=== PATIENT | male | born 1970 | race Caucasian/White ===

== ENCOUNTER 2020-11-29 16:09 | Inpatient (IN) ==
[2020-11-29] MEDS ORDERED: AMIODARONE 450 MG/9 ML VIAL IV ONE (19:17)
[2020-11-29] MEDS ORDERED: EPINEPHrine 1 MG/10 ML SYRINGE ONE (19:20)
[2020-11-29] MEDS ORDERED: PHENYLEPHRINE DRIP 40 MG/250 ML PREMIX IV ONE ×2 (19:28→21:02)
[2020-11-29] MEDS ORDERED: DEXTROSE 50% 25 GM/50 ML VIAL IV ONE (19:29)
[2020-11-29] MEDS ORDERED: NOREPINEPHRINE 4 MG/4 ML VIAL IV ONE (19:40)
[2020-11-29] MEDS: NOREPINEPHRINE 8 MG in SODIUM CHLORIDE 0.9% 242 ML IV PRN ×3 (19:45→22:30)
[2020-11-29] MEDS: PHENYLEPHRINE DRIP 40 MG/250 ML PREMIX IV PRN ×3 (19:45→22:30)
[2020-11-29] MEDS ORDERED: SODIUM CHLORIDE 0.9% 1,000 ML IV ONE (19:46)
[2020-11-29] MEDS: DEXTROSE 50% 25 GM/50 ML VIAL IV PRN (19:50)
[2020-11-29 19:57] LABS: Basophils # 0.1 10*3/uL (0.0-0.2); Basophils % 0.4 % (0.0-0.8); Eosinophils % 0.1 % (0.00-10.9); Hematocrit 31.1 VOL% (42.0-52.0); Hemoglobin 10.6 GM/DL (14.0-18.0); Immature Granulocytes % 4.7 %; Lymphocytes % 4.5 % (21.2-54.2); Mean Corpuscular HGB Conc 34.1 GM/DL (32-36); Mean Corpuscular Volume 103.3 FL (87-102); Mean Platelet Volume 10.6 FL (9.6-12.0); Monocytes % 4.3 % (1.7-12.7); NRBC # 0.09 10*3/uL; Platelet Count 292 T/CUMM (130-400); Red Blood Count 3.01 MC/CUMM (3.8-5.5); Red Cell Distribution Width 15.8 % (9.3-17.3); White Blood Count 21.3 T/CUMM (4-12)
[2020-11-29] MEDS ORDERED: AMIODARONE INJ 450 MG in DEXTROSE 5% 241 ML IV SCH (20:00)
[2020-11-29 20:08] LABS: INR 1.2; PT Patient Result 12.9 SECS (10.5-12.0); Partial Thromboplastin Time 37.3 SECS (23.9-33.8)
[2020-11-29 20:18] LABS: Band Neutrophils 10 % (0-10); Lymphocytes 5 % (20-55); Segmented Neutrophils 82 % (50-85); Total Cells Counted 100
[2020-11-29 20:19] LABS: Basophilic Stippling 1+; Hypochromasia 1+; Platelet Estimate Adequate; Polychromasia Few; Target Cells Few
[2020-11-29 20:21] LABS: Anisocytosis Slight
[2020-11-29 20:22] LABS: Bilirubin,Urine Moderate mg/dL (Negative); Blood, Urine Moderate mg/dL (Negative); Glucose,Urine (UA) Negative (Negative); Hyaline Casts,Urine 45 /LPF (0-3); Ketones,Urine Negative (Negative); Mucus,Urine Occasional /LPF (Occasional); Nitrite,Urine Negative (Negative); Protein,Urine 30 MG/DL; RBC,Urine 24 /HPF (0-4); Squamous Epithelial Cell,Urine Occasional /HPF (0-10); Urine Appearance CLOUDY (Clear); Urine Color Amber (Yellow); Urine Specific Gravity 1.014 (1.001-1.035)
[2020-11-29 20:27] LABS: Alanine Aminotransferase 85 U/L (16-61); Albumin 1.5 G/DL (3.4-5.0); Alkaline Phosphatase 527 U/L (45-117); Aspartate Amino Transferase 354 U/L (0-37); Blood Urea Nitrogen 32 MG/DL (7-18); CKMB % 4.6 %; Calcium 8.8 MG/DL (8.5-10.1); Carbon Dioxide 20 MMOL/L (21-32); Estimated Glom Filtration Rate 36 ML/MIN; Glucose 56 MG/DL (74-106); Osmolality,Calculated 242.5 MOS/KG (273-304); Potassium 5.1 MMOL/L (3.5-5.1)
[2020-11-29 20:31] LABS: ABG Oxygen Saturation 99.5 % (95-100); ABG PCO2 53.5 MM HG (35-48); ABG TCO2 14.8 MMOL/L (23-27)
[2020-11-29 20:33] LABS: Sodium 118 MMOL/L (136-145)
[2020-11-29 20:35] LABS: ABG PH 7.066 (7.35-7.45)
[2020-11-29] MEDS ORDERED: ALBUTEROL/IPRATROPIUM 3 ML NEB RESP TX PRN (20:59)
[2020-11-29] MEDS ORDERED: ALBUTEROL 2.5 MG/3 ML NEB RESP TX PRN (20:59)
[2020-11-29] MEDS ORDERED: ONDANSETRON 4 MG/2 ML VIAL IV PRN (20:59)
[2020-11-29] MEDS ORDERED: SODIUM CHLORIDE 0.9% 1,000 ML IV SCH (21:00)
[2020-11-29] MEDS ORDERED: SODIUM BICARB INJ 150 MEQ in DEXTROSE 5% 850 ML IV SCH (21:30)
[2020-11-29] MEDS ORDERED: MINERAL OIL/PETROLATUM OPH OINT 3.5 GM TUBE BOTH EYES PRN (21:54)
[2020-11-29] MEDS: fentaNYL INJ 1,250 MCG in SODIUM CHLORIDE 0.9% 225 ML IV PRN (22:04)
[2020-11-29] MEDS ORDERED: SODIUM CHLORIDE 0.9% 100 ML IV ONE ×2 (22:59→23:00)
[2020-11-29] MEDS: PANTOPRAZOLE 40 MG VIAL IV SCH (23:01)
[2020-11-29] MEDS: ALBUMIN 5% 25 GM/500 ML VIAL IV SCH (23:01)
[2020-11-29] MEDS: PIPERACILLIN/TAZOBACTAM 3,375 MG in SODIUM CHLORIDE 0.9% 100 ML IV SCH (23:01)
[2020-11-30] MEDS: NOREPINEPHRINE 16 MG in SODIUM CHLORIDE 0.9% 234 ML IV PRN ×7 (00:05→23:50)
[2020-11-30] MEDS: PHENYLEPHRINE INJ 160 MG in SODIUM CHLORIDE 0.9% 234 ML IV PRN ×4 (00:05→18:20)
[2020-11-30 00:24] LABS: ABG Base Excess -15.5 MMOL/L (-2.5-2.5); ABG HCO3 13.2 MMOL/L (20-26); ABG Oxygen Saturation 99.3 % (95-100); ABG PCO2 42.4 MM HG (35-48); ABG PO2 304.5 MM HG (80-95); ABG TCO2 14.5 MMOL/L (23-27)
[2020-11-30 00:27] LABS: ABG PH 7.111 (7.35-7.45)
[2020-11-30] MEDS: HYDROCORTISONE 100 MG VIAL IV SCH ×4 (00:38→23:15)
[2020-11-30] MEDS: DEXTROSE 50% 25 GM/50 ML VIAL IV PRN ×4 (02:30→17:41)
[2020-11-30 02:58] LABS: Basophils % 0.2 % (0.0-0.8); Eosinophils % 0.1 % (0.00-10.9); Hematocrit 27.4 VOL% (42.0-52.0); Immature Granulocytes % 1.6 %; Immature Granulocytes Absolute 0.31 #; Lymphocytes # 0.7 10*3/uL (1.4-4.0); Lymphocytes % 3.6 % (21.2-54.2); Mean Corpuscular HGB Conc 32.8 GM/DL (32-36); Mean Corpuscular Volume 108.3 FL (87-102); Mean Platelet Volume 10.7 FL (9.6-12.0); Monocytes % 2.8 % (1.7-12.7); NRBC # 0.09 10*3/uL; Neutrophils % 91.7 % (38.7-73.9); Platelet Count 218 T/CUMM (130-400); Red Blood Count 2.53 MC/CUMM (3.8-5.5); Red Cell Distribution Width 15.6 % (9.3-17.3)
[2020-11-30 03:15] LABS: INR 1.6; PT Patient Result 17.1 SECS (10.5-12.0); Partial Thromboplastin Time 56.6 SECS (23.9-33.8)
[2020-11-30 03:28] LABS: Blood Urea Nitrogen 32 MG/DL (7-18); Calcium 6.8 MG/DL (8.5-10.1); Carbon Dioxide 12 MMOL/L (21-32); Estimated Glom Filtration Rate 32 ML/MIN; Glucose 164 MG/DL (74-106); Potassium 4.7 MMOL/L (3.5-5.1)
[2020-11-30 03:31] LABS: Albumin 1.5 G/DL (3.4-5.0); Bilirubin,Total 8.2 MG/DL (0.20-1.00); Calcium 6.7 MG/DL (8.5-10.1); Osmolality,Calculated 247.5 MOS/KG (273-304); Potassium 4.6 MMOL/L (3.5-5.1)
[2020-11-30 03:34] LABS: CKMB % 2.2 %
[2020-11-30 03:43] LABS: Osmolality,Calculated 248.5 MOS/KG (273-304); Sodium 118 MMOL/L (136-145)
[2020-11-30 03:55] LABS: ABG Base Excess -17.6 MMOL/L (-2.5-2.5); ABG HCO3 11.2 MMOL/L (20-26); ABG PCO2 41.5 MM HG (35-48); ABG TCO2 11.6 MMOL/L (23-27)
[2020-11-30 03:58] LABS: ABG PH 7.068 (7.35-7.45)
[2020-11-30 04:00] LABS: Band Neutrophils 9 % (0-10); Lymphocytes 5 % (20-55); Nucleated Red Blood Cells 2 (0-5); Segmented Neutrophils 86 % (50-85); Total Cells Counted 100
[2020-11-30 04:01] LABS: Hypochromasia 1+; Microcytosis Slight; Platelet Estimate Adequate
[2020-11-30] MEDS ORDERED: SODIUM BICARBONATE 50 MEQ/50 ML VIAL IV ONE ×2 (04:04→06:20)
[2020-11-30] MEDS: ALBUMIN 5% 25 GM/500 ML VIAL IV SCH ×3 (04:45→21:10)
[2020-11-30] MEDS: PIPERACILLIN/TAZOBACTAM 3,375 MG in SODIUM CHLORIDE 0.9% 100 ML IV SCH ×3 (04:55→21:50)
[2020-11-30] MEDS ORDERED: SODIUM BICARB INJ 150 MEQ in DEXTROSE 5% 850 ML IV SCH (06:35)
[2020-11-30 07:50] LABS: Basophils # 0.1 10*3/uL (0.0-0.2); Basophils % 0.2 % (0.0-0.8); Hematocrit 28.5 VOL% (42.0-52.0); Immature Granulocytes % 1.8 %; Immature Granulocytes Absolute 0.42 #; Lymphocytes # 0.8 10*3/uL (1.4-4.0); Lymphocytes % 3.6 % (21.2-54.2); Mean Corpuscular HGB Conc 31.6 GM/DL (32-36); Mean Platelet Volume 10.8 FL (9.6-12.0); Monocytes % 2.9 % (1.7-12.7); NRBC # 0.13 10*3/uL; Neutrophils % 91.5 % (38.7-73.9); Platelet Count 194 T/CUMM (130-400); Red Blood Count 2.59 MC/CUMM (3.8-5.5); Red Cell Distribution Width 15.6 % (9.3-17.3)
[2020-11-30 08:02] LABS: INR 1.8
[2020-11-30 08:03] LABS: Partial Thromboplastin Time 50.7 SECS (23.9-33.8)
[2020-11-30 08:10] LABS: Band Neutrophils 14 % (0-10); Hypochromasia 1+; Lymphocytes 3 % (20-55); Microcytosis 1+; Platelet Estimate Adequate; Segmented Neutrophils 78 % (50-85); Total Cells Counted 100
[2020-11-30 08:23] LABS: CKMB % 1.8 %; Calcium 6.7 MG/DL (8.5-10.1); Osmolality,Calculated 255.5 MOS/KG (273-304); Potassium 4.3 MMOL/L (3.5-5.1)
[2020-11-30 08:26] LABS: High Sensitive Troponin I* 469.1 ng/L (0-78)
[2020-11-30] MEDS: SODIUM BICARB INJ 150 MEQ in DEXTROSE 5% 1,000 ML IV SCH ×3 (08:29→16:41)
[2020-11-30] MEDS: PANTOPRAZOLE 40 MG VIAL IV SCH ×2 (08:54→21:30)
[2020-11-30] MEDS ORDERED: POLYETHYLENE GLYCOL POWDER 255 GM BOTTLE PO ONE (09:38)
[2020-11-30] MEDS: RIFAXIMIN 550 MG TABLET PO SCH ×2 (10:22→21:10)
[2020-11-30] MEDS: POLYETHYLENE GLYCOL POWDER 17 GM PACK PER TUBE SCH (10:29)
[2020-11-30] MEDS ORDERED: THIAMINE 200 MG/2 ML VIAL IV ONE (10:34)
[2020-11-30] MEDS ORDERED: VANCOMYCIN INJ 1,500 MG in SODIUM CHLORIDE 0.9% 500 ML IV ONE (11:00)
[2020-11-30] MEDS: FOLIC ACID INJ 1 MG in SYRINGE 1 EACH IV SCH (12:15)
[2020-11-30 14:32] LABS: Basophils # 0.1 10*3/uL (0.0-0.2); Basophils % 0.2 % (0.0-0.8); Hematocrit 27.4 VOL% (42.0-52.0); Hemoglobin 8.8 GM/DL (14.0-18.0); Immature Granulocytes Absolute 0.52 #; Lymphocytes # 0.8 10*3/uL (1.4-4.0); Mean Corpuscular HGB Conc 32.1 GM/DL (32-36); Mean Corpuscular Volume 108.7 FL (87-102); Mean Platelet Volume 11.1 FL (9.6-12.0); Neutrophils % 91.8 % (38.7-73.9); Platelet Count 141 T/CUMM (130-400); Red Blood Count 2.52 MC/CUMM (3.8-5.5); Red Cell Distribution Width 15.7 % (9.3-17.3); White Blood Count 26.3 T/CUMM (4-12)
[2020-11-30 14:45] LABS: INR 2.1
[2020-11-30 14:46] LABS: PT Patient Result 22.3 SECS (10.5-12.0); Partial Thromboplastin Time 53.8 SECS (23.9-33.8)
[2020-11-30 15:02] LABS: Band Neutrophils 40 % (0-10); Lymphocytes 3 % (20-55); Metamyelocytes 7 %; Myelocytes 2 %; Segmented Neutrophils 46 % (50-85); Total Cells Counted 100
[2020-11-30 15:04] LABS: CKMB % 1.5 %; Calcium 6.3 MG/DL (8.5-10.1); High Sensitive Troponin I* 417.8 ng/L (0-78); Osmolality,Calculated 258.4 MOS/KG (273-304); Potassium 3.8 MMOL/L (3.5-5.1)
[2020-11-30 15:06] LABS: Anisocytosis 1+; Atypical Lymphocytes Few; Macrocytosis 1+; Platelet Estimate Adequate; Polychromasia 2+
[2020-11-30] MEDS: fentaNYL INJ 1,250 MCG in SODIUM CHLORIDE 0.9% 225 ML IV PRN (15:46)
[2020-11-30] MEDS: DEXTROSE 10% 1,000 ML IV SCH (18:19)
[2020-11-30 20:12] LABS: Basophils # 0.1 10*3/uL (0.0-0.2); Basophils % 0.3 % (0.0-0.8); Hematocrit 27.5 VOL% (42.0-52.0); Hemoglobin 8.8 GM/DL (14.0-18.0); Immature Granulocytes % 2.1 %; Immature Granulocytes Absolute 0.51 #; Lymphocytes # 0.4 10*3/uL (1.4-4.0); Lymphocytes % 1.8 % (21.2-54.2); Mean Corpuscular Volume 109.6 FL (87-102); Mean Platelet Volume 11.5 FL (9.6-12.0); Monocytes % 2.7 % (1.7-12.7); NRBC # 0.26 10*3/uL; Neutrophils % 93.1 % (38.7-73.9); Platelet Count 119 T/CUMM (130-400); Red Blood Count 2.51 MC/CUMM (3.8-5.5); Red Cell Distribution Width 15.8 % (9.3-17.3)
[2020-11-30 20:28] LABS: INR 2.4
[2020-11-30 20:29] LABS: PT Patient Result 25.4 SECS (10.5-12.0); Partial Thromboplastin Time 56.7 SECS (23.9-33.8)
[2020-11-30 20:42] LABS: CKMB % 1.3 %; Calcium 6.4 MG/DL (8.5-10.1); High Sensitive Troponin I* 410.5 ng/L (0-78); Osmolality,Calculated 262.2 MOS/KG (273-304); Potassium 3.8 MMOL/L (3.5-5.1)
[2020-12-01] MEDS ORDERED: VASOPRESSIN 100 UNITS in SODIUM CHLORIDE 0.9% 95 ML IV PRN (00:30)
[2020-12-01] MEDS: SODIUM BICARB INJ 150 MEQ in DEXTROSE 5% 1,000 ML IV SCH ×3 (02:00→21:21)
[2020-12-01 02:16] LABS: Basophils # 0.1 10*3/uL (0.0-0.2); Basophils % 0.3 % (0.0-0.8); Eosinophils % 0.1 % (0.00-10.9); Hematocrit 26.6 VOL% (42.0-52.0); Hemoglobin 8.6 GM/DL (14.0-18.0); Immature Granulocytes % 5.4 %; Immature Granulocytes Absolute 1.65 #; Lymphocytes # 0.4 10*3/uL (1.4-4.0); Lymphocytes % 1.2 % (21.2-54.2); Mean Corpuscular HGB Conc 32.3 GM/DL (32-36); Mean Corpuscular Volume 108.1 FL (87-102); Mean Platelet Volume 11.5 FL (9.6-12.0); Monocytes % 3.2 % (1.7-12.7); NRBC # 0.43 10*3/uL; Neutrophils % 89.8 % (38.7-73.9); Platelet Count 106 T/CUMM (130-400); Red Blood Count 2.46 MC/CUMM (3.8-5.5); Red Cell Distribution Width 15.9 % (9.3-17.3); White Blood Count 30.5 T/CUMM (4-12)
[2020-12-01 02:27] LABS: INR 2.7; PT Patient Result 28.3 SECS (10.5-12.0); Partial Thromboplastin Time 63.5 SECS (23.9-33.8)
[2020-12-01 02:32] LABS: Blood Urea Nitrogen 31 MG/DL (7-18); Calcium 6.3 MG/DL (8.5-10.1); Carbon Dioxide 19 MMOL/L (21-32); Estimated Glom Filtration Rate 25 ML/MIN; Glucose 99 MG/DL (74-106); Osmolality,Calculated 257.5 MOS/KG (273-304); Potassium 3.8 MMOL/L (3.5-5.1); Sodium 125 MMOL/L (136-145)
[2020-12-01 02:43] LABS: Hypochromasia Slight; Macrocytosis Slight; Platelet Estimate Adequate
[2020-12-01] MEDS: NOREPINEPHRINE 16 MG in SODIUM CHLORIDE 0.9% 234 ML IV PRN ×8 (02:50→22:59)
[2020-12-01 03:41] LABS: ABG HCO3 16.9 MMOL/L (20-26); ABG Oxygen Saturation 98.6 % (95-100); ABG PCO2 36.3 MM HG (35-48); ABG PH 7.285 (7.35-7.45); ABG PO2 158.1 MM HG (80-95)
[2020-12-01] MEDS: ALBUMIN 5% 25 GM/500 ML VIAL IV SCH ×2 (05:15→13:11)
[2020-12-01] MEDS: PIPERACILLIN/TAZOBACTAM 3,375 MG in SODIUM CHLORIDE 0.9% 100 ML IV SCH ×2 (05:30→18:30)
[2020-12-01] MEDS: PHENYLEPHRINE INJ 160 MG in SODIUM CHLORIDE 0.9% 234 ML IV PRN ×5 (05:55→20:47)
[2020-12-01 07:53] LABS: Basophils # 0.1 10*3/uL (0.0-0.2); Basophils % 0.3 % (0.0-0.8); Eosinophils # 0.1 10*3/uL (0.0-0.87); Eosinophils % 0.1 % (0.00-10.9); Hematocrit 25.8 VOL% (42.0-52.0); Hemoglobin 8.5 GM/DL (14.0-18.0); Immature Granulocytes % 4.6 %; Immature Granulocytes Absolute 1.79 #; Lymphocytes # 0.4 10*3/uL (1.4-4.0); Mean Corpuscular HGB Conc 32.9 GM/DL (32-36); Mean Corpuscular Volume 107.1 FL (87-102); Mean Platelet Volume 11.6 FL (9.6-12.0); Monocytes % 2.9 % (1.7-12.7); NRBC # 0.74 10*3/uL; Neutrophils % 91.1 % (38.7-73.9); Red Blood Count 2.41 MC/CUMM (3.8-5.5); Red Cell Distribution Width 15.9 % (9.3-17.3)
[2020-12-01 07:55] LABS: Platelet Count 93 T/CUMM (130-400)
[2020-12-01 07:59] LABS: INR 3.3; PT Patient Result 33.7 SECS (10.5-12.0); Partial Thromboplastin Time 76.4 SECS (23.9-33.8)
[2020-12-01 08:23] LABS: Band Neutrophils 9 % (0-10); Lymphocytes 1 % (20-55); Metamyelocytes 2 %; Myelocytes 2 %; Nucleated Red Blood Cells 1 (0-5); Segmented Neutrophils 81 % (50-85); Total Cells Counted 100
[2020-12-01 08:24] LABS: Hypochromasia Slight; Stomatocytes Slight
[2020-12-01 08:25] LABS: Anisocytosis 1+; Macrocytosis 1+; Pappenheimer Bodies Slight; Platelet Estimate Decreased
[2020-12-01 08:26] LABS: Target Cells Slight
[2020-12-01] MEDS: HYDROCORTISONE 100 MG VIAL IV SCH ×3 (08:28→22:58)
[2020-12-01] MEDS: DEXTROSE 10% 1,000 ML IV SCH (08:29)
[2020-12-01] MEDS: RIFAXIMIN 550 MG TABLET PO SCH ×2 (08:30→21:21)
[2020-12-01] MEDS: POLYETHYLENE GLYCOL POWDER 17 GM PACK PER TUBE SCH ×3 (08:30→21:21)
[2020-12-01] MEDS: FOLIC ACID INJ 1 MG in SYRINGE 1 EACH IV SCH (08:30)
[2020-12-01] MEDS: PANTOPRAZOLE 40 MG VIAL IV SCH ×2 (08:30→21:20)
[2020-12-01 10:05] LABS: Blood Urea Nitrogen 30 MG/DL (7-18); Calcium 6.2 MG/DL (8.5-10.1); Carbon Dioxide 20 MMOL/L (21-32); Estimated Glom Filtration Rate 23 ML/MIN; Glucose 98 MG/DL (74-106); Osmolality,Calculated 262.1 MOS/KG (273-304); Potassium 4.1 MMOL/L (3.5-5.1); Sodium 128 MMOL/L (136-145)
[2020-12-01] MEDS ORDERED: MAGNESIUM SULF RIDER 2 GM/50 ML PREMIX IV ONE (10:09)
[2020-12-01 11:03] LABS: Bilirubin,Urine Negative (Negative); Blood, Urine Moderate mg/dL (Negative); Glucose,Urine (UA) Negative (Negative); Hyaline Casts,Urine 1 /LPF (0-3); Ketones,Urine Negative (Negative); Mucus,Urine Occasional /LPF (Occasional); Nitrite,Urine Negative (Negative); Protein,Urine 100 MG/DL; RBC,Urine 18 /HPF (0-4); Urine Appearance CLEAR (Clear); Urine Color Yellow (Yellow); Urine Specific Gravity 1.005 (1.001-1.035); Urine Urobilinogen < 2.0 EU/DL (0.2-1.0)
[2020-12-01] MEDS ORDERED: VANCOMYCIN INJ 1,500 MG in SODIUM CHLORIDE 0.9% 500 ML IV PRN (11:27)
[2020-12-01 14:46] LABS: Albumin 1.8 G/DL (3.4-5.0); Bilirubin,Direct 7.688 MG/DL (0.0-0.20); Bilirubin,Indirect 2.9 MG/DL (0.0-1.0); Bilirubin,Total 10.6 MG/DL (0.20-1.00); Total Protein 3.8 G/DL (6.4-8.2)
[2020-12-01] MEDS: DEXTROSE 50% 25 GM/50 ML VIAL IV PRN ×2 (17:45→20:54)
[2020-12-01] MEDS ORDERED: POLYETHYLENE GLYCOL POWDER 17 GM PACK PER TUBE SCH (21:00)
[2020-12-01 22:15] LABS: ABG Base Excess -9.8 MMOL/L (-2.5-2.5); ABG HCO3 16.5 MMOL/L (20-26); ABG Oxygen Saturation 98.4 % (95-100); ABG PCO2 38.1 MM HG (35-48); Glucose Heart Surgery 131 MG/DL (74-106); Hemoglobin Heart Surgery 7.4 G/DL (14.0-18.0); Potassium Heart/CVR 4.8 MMOL/L (3.5-5.1)
[2020-12-01] MEDS ORDERED: SODIUM BICARBONATE 50 MEQ/50 ML VIAL IV ONE (22:26)
[2020-12-02] MEDS: DEXTROSE 50% 25 GM/50 ML VIAL IV PRN ×3 (00:12→07:42)
[2020-12-02] MEDS: DEXTROSE 10% 1,000 ML IV SCH (01:33)
[2020-12-02] MEDS: NOREPINEPHRINE 16 MG in SODIUM CHLORIDE 0.9% 234 ML IV PRN ×4 (01:49→10:21)
[2020-12-02] MEDS: DEXTROSE 10% 500 ML IV SCH ×2 (01:49→11:35)
[2020-12-02] MEDS: PHENYLEPHRINE INJ 160 MG in SODIUM CHLORIDE 0.9% 234 ML IV PRN ×2 (02:30→10:56)
[2020-12-02 03:25] LABS: ABG Base Excess -11.6 MMOL/L (-2.5-2.5); ABG HCO3 15.1 MMOL/L (20-26); ABG PCO2 39.4 MM HG (35-48); ABG TCO2 15.1 MMOL/L (23-27); Basophils # 0.3 10*3/uL (0.0-0.2); Basophils % 0.7 % (0.0-0.8); Eosinophils % 0.1 % (0.00-10.9); Hematocrit 20.9 VOL% (42.0-52.0); Lymphocytes # 0.7 10*3/uL (1.4-4.0); Lymphocytes % 1.7 % (21.2-54.2); Mean Corpuscular HGB Conc 32.1 GM/DL (32-36); Mean Corpuscular Volume 111.8 FL (87-102); Mean Platelet Volume 12.1 FL (9.6-12.0); Monocytes % 3.4 % (1.7-12.7); Neutrophils % 92.1 % (38.7-73.9); Red Cell Distribution Width 16.6 % (9.3-17.3); White Blood Count 39.2 T/CUMM (4-12)
[2020-12-02 03:27] LABS: Hemoglobin 6.7 GM/DL (14.0-18.0); Red Blood Count 1.87 MC/CUMM (3.8-5.5)
[2020-12-02 03:28] LABS: ABG PH 7.205 (7.35-7.45)
[2020-12-02 03:29] LABS: Platelet Count 51 T/CUMM (130-400)
[2020-12-02] MEDS ORDERED: SODIUM BICARBONATE 50 MEQ/50 ML VIAL IV ONE (03:34)
[2020-12-02 03:41] LABS: Osmolality,Calculated 262.4 MOS/KG (273-304)
[2020-12-02 03:43] LABS: Calcium 5.4 MG/DL (8.5-10.1)
[2020-12-02 04:03] LABS: Band Neutrophils 5 % (0-10); Hypochromasia 1+; Lymphocytes 8 % (20-55); Nucleated Red Blood Cells 2 (0-5); Platelet Estimate Decreased; Segmented Neutrophils 84 % (50-85); Total Cells Counted 100
[2020-12-02 04:04] LABS: Macrocytosis Slight; Pappenheimer Bodies Slight
[2020-12-02] MEDS ORDERED: ALBUMIN 5% 12.5 GM/250 ML VIAL IV ONE (04:15)
[2020-12-02] MEDS ORDERED: EPINEPHrine 1 MG/ML VIAL ONE ×2 (04:29→07:19)
[2020-12-02] MEDS: PIPERACILLIN/TAZOBACTAM 3,375 MG in SODIUM CHLORIDE 0.9% 100 ML IV SCH (06:15)
[2020-12-02] MEDS: SODIUM BICARB INJ 150 MEQ in DEXTROSE 5% 1,000 ML IV SCH (09:27)
[2020-12-02] MEDS ORDERED: CALCIUM GLUCONATE 1,000 MG in SODIUM CHLORIDE 0.9% 100 ML IV ONE (10:00)
[2020-12-02] MEDS: POLYETHYLENE GLYCOL POWDER 17 GM PACK PER TUBE SCH ×3 (11:07→15:14)
[2020-12-02] MEDS: RIFAXIMIN 550 MG TABLET PO SCH ×2 (11:07→11:38)
[2020-12-02] MEDS: HYDROCORTISONE 100 MG VIAL IV SCH ×2 (11:08→15:14)
[2020-12-02] MEDS: PANTOPRAZOLE 40 MG VIAL IV SCH (11:11)
[2020-12-02] MEDS: FOLIC ACID INJ 1 MG in SYRINGE 1 EACH IV SCH (12:12)
[2020-12-02] MEDS ORDERED: SODIUM CHLORIDE 0.9% 1,000 ML IV PRN (12:20)
[2020-12-02 12:45] LABS: Osmolality,Calculated 265.9 MOS/KG (273-304); Potassium 5.3 MMOL/L (3.5-5.1)
[2020-12-02 12:50] LABS: Calcium 5.4 MG/DL (8.5-10.1)
[2020-12-02 16:05] VITALS: BP 23/7
== END 2020-12-02 16:14 | disposition expired | DRG 441 ==
LOC: N.TELEN 18:59 → N.ICU 19:24 → N.CVR 12-01 18:08
PROVIDERS: ADMIT Internal Medicine; ATTEND Internal Medicine